=== PATIENT | male | born 1955 | race African-American/Black ===

== ENCOUNTER 2019-06-16 03:08 | Emergency (ER) | payer MEDICARE, OTHER ==
[2019-06-16 03:59] LABS: Bilirubin Negative (Negative); Blood, Urine Trace (Negative); Clarity Clear (Clear); Glucose, Urine (Dipstick) Negative (Negative); Leukocyte Negative (Negative); Nitrite Negative (Negative); Protein, Urine (Dipstick) 100 mg/dL (Neg-Trace); Urobilinogen 0.2 mg/dL (Less than 2)
[2019-06-16 04:00] LABS: RBC/HPF 0-3 HPF (0-3); Squamous Epithelial 0-3 HPF (0-3); WBC/HPF 0-3 HPF (0-3)
[2019-06-16 04:01] LABS: Bacteria/HPF Rare-Few HPF (None Seen)
[2019-06-16] MEDS ORDERED: traMADol HCl 50 MG TAB ONE (05:08)
--- NOTE | 2019-06-16 08:17 | CT ---
PRELIMINARY REPORT/[facility]/EMERGENCY AFTER HOURS PROCEDURE: EXAM: CT Lumbar Spine Without Intravenous Contrast. CLINICAL HISTORY: FALL; PATIENT FOUND ON FLOOR @ HOME [facility] TECHNIQUE: Axial computed tomography images of the lumbar spine without intravenous contrast. Sagittal and coron al reformations performed. COMPARISON: None provided. FINDINGS: L5 fracture without subluxation, with approximately 50% height loss. No other fractures. Bilateral sacroiliac joint osteoarthrosis. No significant disc or facet degeneration. No significant central canal or neural foraminal stenosis. Bilateral nephrolithiasis. Left upper quadrant region not well assessed due to motion artifact. The paraspinal soft tissues are unremarkable. IMPRESSION: L5 fracture without subluxation, with approximately 50% height loss. ELECTRONICALLY SIGNED BY: Trenton Mcgee MD Jun 16, 2019 5:05:03 AM MANAGER MACHINE This report is intended for review by the ordering physician only, in accordance of law. If you recei ve this report in error, please call [facility] at [phone]. FINAL REPORT CT LUMBAR SPINE WITHOUT CONTRAST: HISTORY: Pain. Found on ground. COMPARISON: Reference is made to a stone protocol CT from 2013. FINDINGS/IMPRESSION: Findings and impression are concordant with the preliminary report. 1. There is an AO classification A4 complete burst fracture with minimal retropulsion of the posteri or superior end plate. 2. Central disk protrusion at L5-S1 with minimal narrowing of the cerebrospinal fluid space. 3. Circumference disk-osteophyte complex at L4-5 with moderate bilateral neural foraminal narrowing. The same is true at L3-4. POS: [facility]ET
== END 2019-06-16 06:00 | disposition home or self-care (01) ==
LOC: NAV ERS 03:08
DX: S32.059A Unspecified fracture of fifth lumbar vertebra, initial encounter for closed fracture (principal); I10 Essential (primary) hypertension; Z86.73 Personal history of transient ischemic attack (TIA), and cerebral infarction without residual deficits; F41.9 Anxiety disorder, unspecified; Z79.899 Other long term (current) drug therapy; W19.XXXA Unspecified fall, initial encounter; Y93.01 Activity, walking, marching and hiking; Y92.009 Unspecified place in unspecified non-institutional (private) residence as the place of occurrence of the external cause
CPT/HCPCS: 72131; 81003; 81015

== ENCOUNTER 2019-08-11 22:50 | Emergency (ER) | payer MEDICARE, OTHER ==
[2019-08-11 23:19] LABS: #Basophils 0.2 thou/uL (0.0-0.2); #Eosinphils 0.2 thou/uL (0.0-0.7); #Lymphocytes 4.1 thou/uL (1.20-3.40); #Neutrophils 14.2 thou/uL (1.40-6.50); %Basophils 1.1 % (0.0-1.0); %Eosinophils 0.9 % (0.0-10.0); %Lymphocytes 20.9 % (21.0-51.0); %Monocytes 5.3 % (0.0-10.0); %Neutrophils 71.9 % (42.0-75.0); Hemoglobin 13.3 g/dL (14.0-18.0); Mean Corpuscular HGB CONC 30.9 g/dL (32.0-36.0); Mean Corpuscular Volume 87.6 fL (78.0-98.0); Platelet Count 275 thou/uL (130-400); RBC Distribution Width 13.2 % (11.5-14.5); Red Blood Cell (RBC) Count 4.91 mill/uL (4.70-6.10); White Blood Cell (WBC) Count 19.8 thou/uL (4.8-10.8)
[2019-08-11 23:24] LABS: ALT (SGPT) 16 U/L (8-55); AST (SGOT) 14 U/L (5-34); Albumin 4.4 g/dL (3.4-4.8); Alkaline Phosphatase 99 U/L (40-110); Anion Gap 33 mmol/L (10-20); BUN (Urea Nitrogen) 19 mg/dL (8.4-25.7); Bilirubin, Total 0.4 mg/dL (0.2-1.2); Calc. Creatinine Clearance 0 mL/min (70-130); Calcium 9.3 mg/dL (7.8-10.44); Chloride 105 mmol/L (98-107); Estimated GFR-MDRD 40; Globulin 2.9 g/dL (2.4-3.5); Potassium 3.8 mmol/L (3.5-5.1); Protein, Total 7.3 g/dL (5.8-8.1); Sodium 142 mmol/L (136-145)
[2019-08-11 23:25] LABS: Carbon Dioxide 8 mmol/L (23-31); Glucose 220 mg/dL (80-115)
[2019-08-11 23:43] LABS: Bilirubin Negative (Negative); Blood, Urine Moderate (Negative); Clarity Clear (Clear); Glucose, Urine (Dipstick) Negative (Negative); Leukocyte Negative (Negative); Nitrite Negative (Negative); Protein, Urine (Dipstick) 30 mg/dL (Neg-Trace); Urobilinogen 0.2 mg/dL (Less than 2)
[2019-08-11 23:50] LABS: Bacteria/HPF None Seen HPF (None Seen); RBC/HPF 0-3 HPF (0-3); Squamous Epithelial None Seen HPF (0-3); WBC/HPF None Seen HPF (0-3)
--- NOTE | 2019-08-11 23:54 | CT ---
CT BRAIN WITHOUT CONTRAST: 08/11/19 HISTORY: Seizure. COMPARISON: None. FINDINGS: Chronic deformity and calcification of the left globe. Moderate atrophy. The cisterna magna is enlarg ed. Extensive periventricular and deep white matter chronic microangiopathic changes. No definite acute t erritorial infarction. No midline shift. No hemorrhage. No mass effect. Calvarium is intact. The paranasal sinuses and mastoids are clear. IMPRESSION: 1. Extensive chronic microangiopathic changes. 2. No acute hemorrhage. 3. Enlarged, zari cisterna magna. POS: HOME
--- NOTE | 2019-08-11 23:55 | RAD ---
CHEST ONE VIEW: 08/11/19 HISTORY: Fever. COMPARISON: Chest radiograph from 2010. FINDINGS: The aorta is mildly tortuous. No confluent air space consolidation, pneumothorax or effusion. Heart s ize is normal. No acute osseous abnormality. IMPRESSION: Mild aortic tortuosity. No acute intrathoracic abnormality. POS: HOME
[2019-08-12] MEDS ORDERED: Sodium Chloride 0.9% 1,000 ML ONE (00:08)
[2019-08-12 00:11] LABS: Lactic Acid 7.4 mmol/L (0.5-2.2)
[2019-08-12] MEDS ORDERED: Piperacillin/Tazobactam 4.5 GM VIAL ONE (00:13)
[2019-08-12 00:14] LABS: Base Excess-Venous -3.4 mmol/L (-2.0 to 3.0); Bicarbonate (HCO3v) 20.9 mmol/L (22.0-28.0); CO2 Tension (PvCO2) 34.6 mmHg (40.0-50.0); Calcium, Ionized 1.12 mmol/L (See Comments:); Chloride 104 mmol/L (98-107); Hemoglobin - Calc 13.2 g/dL (14.0-18.0); Potassium 3.1 mmol/L (3.5-5.1); Sodium 141 mmol/L (138-145); T. Carbon Dioxide 21.9 mmol/L (22.0-28.0); vO2 Saturation-calc 83.9 % (60.0-85.0)
[2019-08-12] MEDS ORDERED: Sodium Chloride 0.9% 250 ML 250 ML ONE (02:56)
== END 2019-08-12 01:35 | disposition short-term general hospital (02) ==
LOC: NAV ERS 22:50
DX: A41.9 Sepsis, unspecified organism (principal); R56.9 Unspecified convulsions; Z20.828 Contact with and (suspected) exposure to other viral communicable diseases; I10 Essential (primary) hypertension; F41.9 Anxiety disorder, unspecified; Z79.899 Other long term (current) drug therapy; Z86.73 Personal history of transient ischemic attack (TIA), and cerebral infarction without residual deficits
CPT/HCPCS: 70450; 71045; 80053; 82330; 82435; 82803; 83605; 84132; 84295; 85014; 85025; 87040; 87086; 87149 ×2; 87804 ×2; 96365; 99285; J2543; J3370; J7050; U0002; 81003; 81015; 87635; U0003

== ENCOUNTER 2022-07-21 11:24 | Emergency (ER) | payer OTHER ==
[2022-07-21 12:12] LABS: #Basophils 0.1 thou/uL (0.0-0.2); #Lymphocytes 2.1 thou/uL (1.20-3.40); #Monocytes 0.7 thou/uL (0.11-0.59); %Basophils 0.9 % (0.0-1.0); %Eosinophils 0.2 % (0.0-10.0); %Lymphocytes 23.7 % (21.0-51.0); %Monocytes 7.5 % (0.0-10.0); %Neutrophils 67.7 % (42.0-75.0); Hemoglobin 12.6 g/dL (14.0-18.0); Mean Corpuscular HGB CONC 32.2 g/dL (32.0-36.0); Mean Corpuscular Hemoglobin 28.6 pg (27.0-31.0); Mean Corpuscular Volume 88.7 fl (78.0-98.0); Mean Platelet Volume 8.7 fL (7.4-10.4); Platelet Count 136 10x3/uL (130-400); RBC Distribution Width 12.4 % (11.5-14.5); White Blood Cell (WBC) Count 8.8 10x3/uL (4.8-10.8)
[2022-07-21 12:33] LABS: ALT (SGPT) 72 U/L (8-55); AST (SGOT) 58 U/L (5-34); Albumin 3.9 g/dL (3.4-4.8); Alkaline Phosphatase 50 U/L (40-110); Anion Gap 14 mmol/L (10-20); BUN (Urea Nitrogen) 21 mg/dL (8.4-25.7); Bilirubin, Total 0.5 mg/dL (0.2-1.2); Calc. Creatinine Clearance 0 mL/min (70-130); Carbon Dioxide 28 mmol/L (23-31); Chloride 103 mmol/L (98-107); Estimated GFR 41; Globulin 2.6 g/dL (2.4-3.5); Glucose 97 mg/dL (80-115); Potassium 4.1 mmol/L (3.5-5.1); Protein, Total 6.5 g/dL (5.8-8.1); Sodium 141 mmol/L (136-145)
[2022-07-21] MEDS ORDERED: Aspirin Chewable 81 MG TAB ONE (13:29)
[2022-07-21 14:03] LABS: Bilirubin Negative (Negative); Blood, Urine Trace (Negative); Clarity Clear (Clear); Glucose, Urine (Dipstick) Negative (Negative); Ketone, Urine Negative (Negative); Leukocyte Negative (Negative); Nitrite Negative (Negative); Protein, Urine (Dipstick) Negative (Neg-Trace)
[2022-07-21 14:11] LABS: Bacteria/HPF Rare-Few HPF (None Seen); Squamous Epithelial 0-3 HPF (0-3); WBC/HPF 0-3 HPF (0-3)
== END 2022-07-21 14:55 | disposition home or self-care (01) ==
LOC: NAV ERS 11:24
DX: R41.0 Disorientation, unspecified (principal); R35.0 Frequency of micturition; R32 Unspecified urinary incontinence; I10 Essential (primary) hypertension; Z86.73 Personal history of transient ischemic attack (TIA), and cerebral infarction without residual deficits
CPT/HCPCS: 51701; 70450; 80053; 81003; 81015; 84443; 84484; 85025; 93005

== ENCOUNTER 2023-06-03 10:08 | Emergency (ER) | payer OTHER | END 2023-06-03 10:47 | disposition home or self-care (01) | LOC: NAV ERS 10:08 | DX: S83.92XA Sprain of unspecified site of left knee, initial encounter (principal); U07.1 COVID-19; I10 Essential (primary) hypertension; Z79.899 Other long term (current) drug therapy; W06.XXXA Fall from bed, initial encounter ==

== ENCOUNTER 2025-01-25 13:41 | Emergency (ER) | payer OTHER | END 2025-01-25 15:04 | disposition home or self-care (01) | LOC: NAV ERS 13:41 | DX: G40.909 Epilepsy, unspecified, not intractable, without status epilepticus (principal); I10 Essential (primary) hypertension; Z76.0 Encounter for issue of repeat prescription; Z86.73 Personal history of transient ischemic attack (TIA), and cerebral infarction without residual deficits; Z79.899 Other long term (current) drug therapy | CPT/HCPCS: 99283 ==